=== PATIENT | male | born 1955 | race Caucasian/White ===

== ENCOUNTER → 2019-07-13 | Outpatient (CLI) | payer BC, OTHER ==
[~2019-07-13] VITALS: Ht 172.7 cm; Wt 70.3 kg
[~2019-07-13] MED LIST: BYSTOLIC 5 MG5 M1 PO; CRESTOR20 MG PO
--- NOTE | ~2019-07-13 | HC ---
[facility] [place] [address] CONSULTATION Name: WIN HEAD Room #: REG [facility]#: [id number] Admission: 07/13/19 Attend Phys: Krishna Rivera MD, Discharge: Date of : 55 Report #: [id number] THIS REPORT FOR: //name// CC: Krishna Wei DATE OF SERVICE: 07/13/2019 HISTORY OF PRESENT ILLNESS: We were asked by Dr. Rivera to see the patient. The patient is a 63-year-old with coronary artery disease, who just had cardiac catheterization that showed severe 3-vessel coronary artery disease. Left ventricular function was satisfactory. The patient presents with a history of a syncopal episode and event monitor was placed and the patient had a stress test that showed evidence of ischemia by EKG. MEDICATIONS: The patient denies taking medicine at home. ALLERGIES: None known. SOCIAL HISTORY: The patient is . He is an avid runner and is training for [employer]. REVIEW OF SYSTEMS: GENERAL: The patient denies symptoms. No fevers, weight change. EYES: No visual change. HEENT: No headache, no nasal discharge. No sinus problems. RESPIRATORY: Denies shortness of breath. CARDIAC: As mentioned, syncopal episode. Denies palpitations. Denies chest pain. GASTROINTESTINAL: No nausea, vomiting or blood. GENITOURINARY: No urgency, frequency, or blood. SKIN: No rash or infection. MUSCULOSKELETAL: Denies bone or joint pain. ENDOCRINE: No hot or cold intolerance. No goiter, no tremor. HEMATOLOGIC: No bruisability or bleeding. PHYSICAL EXAMINATION: VITAL SIGNS: Temperature 36.6, pulse rate 50, respiratory rate 11, blood pressure 133/75, O2 sat 97 on room air. HEENT: Normocephalic. Pupils are round, equal. No icterus, no arcus. NECK: No mass, no bruit. CHEST: Clear to auscultation. HEART: Rhythm regular, no murmurs. ABDOMEN: Soft. [facility] [address] [place] [address] CONSULTATION Name: WIN HEAD Room #: REG [facility]#: [id number] Admission: 07/13/19 Attend Phys: Krishna Rivera MD, Discharge: Date of : 55 Report #: [id number] EXTREMITIES: No obvious clubbing, cyanosis or edema. Strong distal pulses. No obvious saphenous vein problems. NEUROLOGIC: No motor or sensory dysfunction. MUSCULOSKELETAL: No bone or joint asymmetry or deformity. SKIN: No rash or infection. PSYCHIATRIC: Shows insight into problem and is a pleasant fellow. IMPRESSION: The patient has severe 3-vessel coronary artery disease with satisfactory ventricular function. I have recommended that the patient had coronary artery bypass surgery. Risks and details of this were discussed this includes but is not limited to bleeding, infection, anesthesia risks, heart and lung problems, stroke and . Options and alternatives were reviewed. The patient understands all of this and wishes to proceed. Thank you for the consult. By: 1456 0025 Rolando De Los Santos MD /nt
[2019-07-13 07:17] VITALS: BP 133/75
[2019-07-13 07:20] LABS: HEMATOCRIT 43.4 % (42.0-52.0); HEMOGLOBIN 14.5 gm/dL (14.0-18.0); MCH 31.8 pg (26.0-34.0); MCHC 33.4 g/dL (28.0-37.0); RBC 4.57 mil/uL (4.50-6.00); RDW 13.2 % (10.5-14.5); WBC 4.6 thou/uL (4.0-11.0)
[2019-07-13 07:26] LABS: CALCIUM 9.3 mg/dL (8.5-10.1); CREATININE 0.9 mg/dL (0.7-1.3)
--- NOTE | 2019-07-13 09:39 | CATHLAB ---
[facility] [address] [place] [address] INVASIVE PROCEDURE REPORT Name: WIN HEAD Room #: REG Martin#: [id number] Admission: 07/13/19 Attend Phys: Krishna Rivera, Discharge: Date of : 55 Date of Service: 07/13/19 0938 Report #: [id number] THIS REPORT FOR: //name// APPROVED REPORT Study performed: 07/13/2019 07:29:53 Patient Details Patient Status: Out-Patient Room #: The patient is a 63 year-old male Event Personnel Krishna Rivera Operating Room Specialist, Wally Anders RN RN, Lizett Bhatti, Bin Funk Scrub Procedures Performed Left Heart Cath w/or w/o Coronaries [id number] [facility] Indication Chest pain Procedure Narrative The Right Groin^ was infiltrated with 1% Lidocaine subcutaneous anesthesia. A PINNACLE 6FR Sheath #[id number] sheath was inserted into the RFA^. Coronary angiography was performed using coronary diagnostic catheters. The right coronary system was accessed and visualized with a JR4 catheter. The left coronary system was accessed and visualized with a JL4 catheter. The left ventricle was accessed and visualized with a PIGTAIL catheter. Left ventricular/Aortic Valve gradient assessed via catheter pullback. Left ventriculogram was performed in 30 degree projection. Closure device was deployed with a 6 Fr MYNX CONTROL 6F/7F #[id number]. The patient tolerated the procedure well and there were no complications associated with the procedure. There was no hematoma. Intraoperative Conscious Sedation Sedation start time: 7.46 Case end Time: 8.22 Fentanyl 50 mcg Versed 1 mg Fluoro Time: 1.42 minutes Dose: DAP 3620.00 cGycm2 411 mGy Contrast Type and Amount: Visipaque 135 ml Coronary Angiography [facility] [place] [address] INVASIVE PROCEDURE REPORT Name: WIN HEAD Room #: [facility]#: [id number] Admission: 07/13/19 Attend Phys: Krishna Rivera, Discharge: Date of : 55 Date of Service: 07/13/19 0938 Report #: [id number] The patient's coronary anatomy is right dominant. Diagnostic Cath Left Main Mild 10-20% distal left main plaquing. LAD Fairly heavy calcific changes of the proximal and mid portions of the LAD. Variable 70-85% proximal, long LAD stenosis Circumflex 90% mid circumflex stenosis just after a large first marginal branch OM1 Mild proximal OM1 plaquing. Severe complex disease in the mid circumflex prior to the first marginal branch OM2 Distally arising, angiographically normal second marginal branch Right Coronary 50-60% proximal right coronary stenosis. Tubular 65% distal right coronary stenosis R PDA Mild plaquing throughout the posterior descending Ramus Large ramus branch with mild 10-20% proximal plaquing Left Ventriculography The left ventricle is normal in size with normal contractility. The left ventricular ejection fraction is estimated to be 60-65%. Left ventricular wall motion abnormalities are not present. There is no mitral insufficiency. Hemodynamics The aortic pressure is 159/60 mmHg with a mean of 106 mmHg. The left ventricular pressure is 165/7 mmHg with a mean of mmHg. The left ventricular end diastolic pressure is 26 mmHg. There was no gradient across the aortic valve upon pullback. Pullback from the left ventricle to the aorta revealed no gradient across the aortic valve. Conclusion 1. Normal global and regional left ventricular systolic function 2. Mild distal left main plaquing (10-20%) 3. Severe multivessel coronary disease Recommendations CABG <ELECTRONICALLY SIGNED> By: Krishna Rivera MD, FACC 07/13/19937 7 7 Krishna Rivera MD, FACC /INF
--- NOTE | 2019-07-13 14:47 | EKG ---
[place] [address] [facility] [place] [address] ELECTROCARDIOGRAM REPORT Name: WIN HEAD [id number] Admission: 07/13/19 Attend Phys: Krishna Rivera MD, Discharge: Date of : 55 Report #: [id number] THIS REPORT FOR: //name// [facility] Test Date: 2019-07-13 Test Time: 07:00:14 Pat Name: WIN HEAD Department: Room: Gender: Litigation Manager: [facility] : 1955 Requested By: Krishna Rivera Order Number: [id number] MD: Dariusz Diaz Measurements Intervals [place] Rate: 48 P: 42 SC: 156 QRS: 31 QRSD: 91 T: 21 QT: 551 QTc: 493 Interpretive Statements Sinus bradycardia Probable left atrial enlargement Nonspecific T-wave abnormality Borderline prolonged QT interval No previous ECG available for comparison Electronically Signed On 07-13-2019 14:46:49 CDT by Dariusz Diaz [email or web address] <ELECTRONICALLY SIGNED> By: Dariusz Diaz MD 07/13/19 1446 0700 0700 Dariusz Diaz MD /CL
== END | disposition home or self-care (01) ==
LOC: CATH 06:39
PROVIDERS: Internal Medicine
DX: I25.10 Atherosclerotic heart disease of native coronary artery without angina pectoris (principal); E78.5 Hyperlipidemia, unspecified; Z79.899 Other long term (current) drug therapy; Z98.890 Other specified postprocedural states

== ENCOUNTER → 2019-07-17 | Outpatient (CLI) | payer BC, OTHER ==
--- NOTE | ~2019-07-17 | HC ---
[facility] [place] [address] CONSULTATION Name: WIN HEAD Room #: [facility] [id number] Admission: 07/17/19 ������������������ Attend Phys: Rolando De Los Santos MD Discharge: ������������������ Date of : 55 Report #: [id number] THIS REPORT FOR: //name// CC: Rolando Wei REASON FOR CONSULTATION: Preoperative evaluation. HISTORY OF PRESENT ILLNESS: The patient is a 63-year-old gentleman with dyslipidemia, mild hypertension and recurrent recent syncope. His recent evaluation has been extensive ultimately leading to the identification of severe multivessel coronary artery disease, for which bypass surgery is to be performed. The patient was driving to [place] for high school reunion when he had recurrent unwitnessed episodes of loss of consciousness, each lasting in upwards of 30 seconds. Following one episode, he ended [place] [address], thankfully without injury. He checked himself into a local hotel. While resting in hotel, he had episodes where he felt his heart raced, although this was not associated with other symptoms. He was evaluated at [facility] in [place], [place]. Electrolytes were normal. EKG demonstrated sinus rhythm with prolonged QT interval (QTC of 536 milliseconds). 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 He is training for the [employer] this fall. An outpatient stress study was notable for resting normal left ventricular systolic function, excellent exercise capacity, although striking ischemic electrocardiographic changes occurring in the recovery phase. Coronary angiography was undertaken on 07/13/2019, which this demonstrated normal left ventricular systolic function and severe multivessel coronary artery disease. Arrangements are being made for genetic screening for QT prolongation syndrome. He does have prior EKGs dating back many years with elevated QT duration. There have been no heart failure symptoms including orthopnea, paroxysmal nocturnal dyspnea or lower extremity edema. No prior history of syncope. His brother has had "fainting spells" which have been attributed to orthostatic hypotension. Prior to this recent series of events, he had been on no medications. ALLERGIES: No known drug allergies. PAST MEDICAL HISTORY: Medical records have been reviewed and include history of dyslipidemia, mild hypertension, back surgery. SOCIAL HISTORY: He has never been a smoker. . [facility] [address] [place] [address] CONSULTATION Name: WIN HEAD Room #: REG [facility] Martin#: [id number] Admission: 07/17/19 ������������������ Attend Phys: Rolando De Los Santos MD Discharge: ������������������ Date of : 55 Report #: [id number] FAMILY HISTORY: Unremarkable for premature coronary artery disease. REVIEW OF SYSTEMS: All systems negative except as that noted above. PHYSICAL EXAMINATION: GENERAL: A pleasant gentleman in no distress. VITAL SIGNS: Blood pressure is 146/80, heart rate of 45 and regular, 5 feet 8 inches tall, 155 pounds. HEENT: There are neither xanthelasma, subcutaneous xanthomata, oral mucosal or digital cyanosis or kyphoscoliosis present. CHEST: Clear to auscultation and percussion. CARDIAC: Regular rate and rhythm with normal S1, S2. No murmurs, gallops or rubs. ABDOMEN: Soft and nontender. EXTREMITIES: Without cyanosis, clubbing or edema. Radial pulses are 2+. NEUROLOGIC: He is alert with a nonfocal exam. LABORATORY DATA: Sodium 141, potassium 3.8, magnesium 2.1. EKG, sinus bradycardia with prolonged QT interval at 528 milliseconds, mildly elevated hemoglobin A1c. IMPRESSION: 1. Severe multivessel coronary artery disease. 2. Recurrent syncope; suspicious for hereditary prolonged QT syndrome. 3. Dyslipidemia. 4. Mild hypertension. 5. Elevated blood sugar; prediabetes. RECOMMENDATIONS: 1. Anticipate coronary artery bypass grafting for multivessel coronary artery disease. 2. Continued use of beta blockade and statin therapy. 3. Given his longstanding prolonged QT, outpatient genetic testing is being arranged. 4. Usual perioperative care. ��������������������������������������������� ���������������������������������������� By: ��������������������������������������������� 1650 0200 Krishna Rivera MD, FACC /nt
--- NOTE | 2019-07-17 09:16 | 2DMMODE ---
[facility] [place] [address] 2 D/M-MODE ECHOCARDIOGRAM Name: WIN HEAD Anette Room #: REG [facility] [id number] ������������� Admission: 07/17/19 ������������� Attend Phys: Rolando De Los Santos MD Discharge: ��� ������������� ��� Date of : 55 Date of Service: 07/17/19 0915 �� Report #: [id number] �������� ��������������������������������������������[id number] THIS REPORT FOR: //name// APPROVED REPORT Study performed: 07/17/2019 08:06:33 EXAM: Comprehensive 2D, Doppler, and color-flow Echocardiogram Patient Location: Out-Patient Status: routine BSA: 1.83 HR: 49 bpm BP: 120/80 mmHg Rhythm: NSR Other Information Study Quality: Good Indications Pre Op CABG. 2D Dimensions RVDd: 29.48 mm IVSd: 12.49 (7-11mm) LVOT Diam: 18.67 (18-24mm) LVDd: 41.61 mm PWd: 12.52 (7-11mm) Ascending Ao: 30.29 (22-36mm) LVDs: 24.50 (25-40mm) Aortic Root: 30.66 mm Volumes Left Atrial Volume (Systole) Single Plane 4CH: 57.99 mL Single Plane 2CH: 51.87 mL LA ESV Index: 32.00 mL/m2 Aortic Valve AoV Peak Ron.: 1.83 m/s AO Peak Gr.: 14.16 mmHg LVOT Max P.98 mmHg LVOT Max V: 1.50 m/s JERRICA Vmax: 2.23 cm2 Mitral Valve E/A Ratio: 1.7 MV Decel. Time: 237.88 ms MV E Max Ron.: 0.83 m/s [facility] [place] [place] [address] 2 D/M-MODE ECHOCARDIOGRAM Name: WIN HEAD Anette Room #: [facility]#: [id number] ������������� Admission: 07/17/19 ������������� Attend Phys: Rolando De Los Santos MD Discharge: ��� ������������� ��� Date of : 55 Date of Service: 07/17/19 0915 �� Report #: [id number] �������� ��������������������������������������������[id number] MV A Ron.: 0.50 m/s MV PHT: 68.98 ms IVRT: 96.89 ms Pulmonary Valve PV Peak Ron.: 1.32 m/s PV Peak Gr.: 7.02 mmHg Pulmonary Vein P Vein S: 0.52 m/s P Vein A: 0.28 m/s P Vein D: 0.41 m/s P Vein A Dur.: 90.0 msec P Vein S/D Ratio: 1.27 Tricuspid Valve TR Peak Ron.: 2.15 m/s RAP Estimate: 5.00 mmHg TR Peak Gr.: 18.47 mmHg PA Pressure: 24.00 mmHg Left Ventricle The left ventricle is normal size. There is normal LV segmental wall motion. Mild concentric left ventricular hypertrophy. Left ventricular systolic function is normal. LVEF is 60-65%. Right Ventricle The right ventricle is normal size. The right ventricular systolic function is normal. Atria The left atrium size is normal. The right atrium size is normal. Aortic Valve The aortic valve is normal in structure. No aortic regurgitation is present. There is no aortic valvular stenosis. Mitral Valve The mitral valve is normal in structure. Trace mitral regurgitation. Tricuspid Valve The tricuspid valve is normal in structure. Trace to mild tricuspid regurgitation. Estimated PAP is 25mmHg. Pulmonic Valve The pulmonary valve is normal in structure. Trace pulmonic regurgitation. [facility] [address] [place] [address] 2 D/M-MODE ECHOCARDIOGRAM Name: WIN HEAD Room #: REG [facility]#: [id number] ������������� Admission: 07/17/19 ������������� Attend Phys: Rolando De Los Santos MD Discharge: ��� ������������� ��� Date of : 55 Date of Service: 07/17/19 0915 �� Report #: [id number] �������� ��������������������������������������������[id number] Great Vessels The aortic root is normal in size. The ascending aorta is normal in size. IVC is normal in size and collapses >50% with inspiration. Pericardium There is no pericardial effusion. <Conclusion> The left ventricle is normal size. Mild concentric left ventricular hypertrophy. LVEF is 60-65%. The right ventricle is normal size. The left atrium size is normal. The aortic valve is normal in structure. Trace mitral regurgitation. Trace to mild tricuspid regurgitation. Estimated PAP is 25mmHg. The aortic root is normal in size. There is no pericardial effusion. ��������������������������������������������� <ELECTRONICALLY SIGNED> ���������������������������������������� By: Mahesh Lyle MD, FACC ��������������������������������������������� 07/17/19914 4 4 Mahesh Lyle MD, FACC /INF
== END ==
LOC: CV 07:50
DX: Z01.818 Encounter for other preprocedural examination (principal); I25.10 Atherosclerotic heart disease of native coronary artery without angina pectoris; I36.1 Nonrheumatic tricuspid (valve) insufficiency; I10 Essential (primary) hypertension; E78.5 Hyperlipidemia, unspecified

== ENCOUNTER 2019-07-19 05:51 | Inpatient (IN) | payer BC ==
[2019-07-17 10:24] LABS: ABSOLUTE NEUTROPHILS 4.9 thou/uL (1.4-8.2); BASOPHILS 0.6 % (0.0-2.0); EOSINOPHILS 4.4 % (0.0-3.0); HEMATOCRIT 44.2 % (42.0-52.0); HEMOGLOBIN 14.7 gm/dL (14.0-18.0); LYMPHOCYTES 18.4 % (24.0-44.0); MCH 31.8 pg (26.0-34.0); MCHC 33.3 g/dL (28.0-37.0); MCV 95.6 fL (80.0-100.0); MONOCYTES 7.1 % (1.0-8.0); PLATELET COUNT 144 thou/uL (150-400); POLYS 69.5 % (36.0-66.0); RBC 4.62 mil/uL (4.50-6.00); RDW 13.3 % (10.5-14.5)
[2019-07-17 10:37] LABS: ALBUMIN 3.8 g/dL (3.4-5.0); CALCIUM 9.2 mg/dL (8.5-10.1); CREATININE 0.8 mg/dL (0.7-1.3); POTASSIUM 4.5 mmol/L (3.5-5.1); TOTAL BILIRUBIN 0.4 mg/dL (<0.1-1.0); TOTAL PROTEIN 6.4 g/dL (6.4-8.2)
[2019-07-17 10:38] LABS: URINE BILIRUBIN NEGATIVE (Negative); URINE BLOOD NEGATIVE (Negative); URINE CLARITY CLEAR; URINE COLOR YELLOW; URINE GLUCOSE-RANDOM* NEGATIVE (Negative); URINE KETONES NEGATIVE (Negative); URINE LEUKOCYTES-REFLEX NEGATIVE (Negative); URINE NITRITE-REFLEX NEGATIVE (Negative); URINE PROTEIN (DIPSTICK) NEGATIVE (Negative); URINE SPECIFIC GRAVITY <= 1.005 (1.005-1.035); URINE UROBILINOGEN 0.2 E.U./dl (0.2-1.0)
[2019-07-17 10:45] LABS: APTT 26.1 Seconds (24.5-32.8); PROTIME 10.1 Seconds (9.3-11.4)
[2019-07-18 02:10] LABS: GLYCOHEMOGLOBIN (HGB A1C) 5.9 % (4.8-5.6)
[~2019-07-19] VITALS: Ht 172.7 cm; Wt 75.3 kg
[2019-07-19] VITALS (25 sets, daily range): BP systolic 91–125; BP diastolic 45–86
[2019-07-19 12:19] LABS: MCV 94.3 fL (80.0-100.0); RBC 3.13 mil/uL (4.50-6.00); RDW 12.9 % (10.5-14.5)
[2019-07-19 12:20] LABS: HEMATOCRIT 29.5 % (42.0-52.0)
[2019-07-19 12:46] LABS: INR 1.4
[2019-07-19 12:49] LABS: APTT 29.1 Seconds (24.5-32.8); FIBRINOGEN 173.9 mg/dL (210-360); PROTIME 14.8 Seconds (9.3-11.4)
[2019-07-19 13:20] LABS: POC BE 1 mmol/L (-2.0 to +3.0); POC CA IONIZED 4.5 mg/dL (4.5-5.3); POC GLUCOSE 115 mg/dL (70-99); POC HCO3 27.1 mmol/L (22.0-26.0); POC HEMOGLOBIN 10.9 g/dL (14.0-18.0); POC POTASSIUM 5.6 mmol/L (3.5-5.1); POC SODIUM 137 mmol/L (136-145); POC pCO2 51.5 mmHg (35.0-45.0); POC pH 7.329 (7.360-7.450)
[2019-07-19 13:20] LABS: POC BE 4 mmol/L (-2.0 to +3.0); POC CA IONIZED 4.4 mg/dL (4.5-5.3); POC GLUCOSE 159 mg/dL (70-99); POC HEMOGLOBIN 9.9 g/dL (14.0-18.0); POC POTASSIUM 5.8 mmol/L (3.5-5.1); POC SODIUM 137 mmol/L (136-145); POC pCO2 46.2 mmHg (35.0-45.0); POC pH 7.406 (7.360-7.450)
[2019-07-19 13:20] LABS: POC BE 4 mmol/L (-2.0 to +3.0); POC CA IONIZED 4.5 mg/dL (4.5-5.3); POC GLUCOSE 128 mg/dL (70-99); POC HCO3 28.9 mmol/L (22.0-26.0); POC HEMOGLOBIN 10.5 g/dL (14.0-18.0); POC POTASSIUM 5.9 mmol/L (3.5-5.1); POC SODIUM 137 mmol/L (136-145); POC pCO2 47.5 mmHg (35.0-45.0); POC pH 7.393 (7.360-7.450)
[2019-07-19 13:20] LABS: POC BE 7 mmol/L (-2.0 to +3.0); POC CA IONIZED 4.7 mg/dL (4.5-5.3); POC GLUCOSE 107 mg/dL (70-99); POC HCO3 30.1 mmol/L (22.0-26.0); POC HEMOGLOBIN 12.2 g/dL (14.0-18.0); POC POTASSIUM 4.4 mmol/L (3.5-5.1); POC SODIUM 139 mmol/L (136-145); POC pCO2 39.3 mmHg (35.0-45.0); POC pH 7.493 (7.360-7.450)
[2019-07-19 13:20] LABS: POC BE 3 mmol/L (-2.0 to +3.0); POC CA IONIZED 4.2 mg/dL (4.5-5.3); POC GLUCOSE 145 mg/dL (70-99); POC HCO3 26.7 mmol/L (22.0-26.0); POC HEMOGLOBIN 9.2 g/dL (14.0-18.0); POC POTASSIUM 5.3 mmol/L (3.5-5.1); POC SODIUM 135 mmol/L (136-145); POC pCO2 38.1 mmHg (35.0-45.0); POC pH 7.454 (7.360-7.450)
[2019-07-19 13:21] LABS: POC BE 2 mmol/L (-2.0 to +3.0); POC CA IONIZED 5.3 mg/dL (4.5-5.3); POC GLUCOSE 127 mg/dL (70-99); POC HCO3 25.7 mmol/L (22.0-26.0); POC HEMOGLOBIN 9.2 g/dL (14.0-18.0); POC POTASSIUM 4.5 mmol/L (3.5-5.1); POC SODIUM 137 mmol/L (136-145); POC pCO2 34.8 mmHg (35.0-45.0); POC pH 7.476 (7.360-7.450)
[2019-07-19 13:21] LABS: POC BE 2 mmol/L (-2.0 to +3.0); POC CA IONIZED 4.9 mg/dL (4.5-5.3); POC GLUCOSE 120 mg/dL (70-99); POC HCO3 25.6 mmol/L (22.0-26.0); POC HEMOGLOBIN 10.9 g/dL (14.0-18.0); POC POTASSIUM 3.9 mmol/L (3.5-5.1); POC SODIUM 140 mmol/L (136-145)
[2019-07-19 13:44] LABS: HEMATOCRIT 34.6 % (42.0-52.0); HEMOGLOBIN 11.7 gm/dL (14.0-18.0); MCHC 33.7 g/dL (28.0-37.0); RBC 3.64 mil/uL (4.50-6.00); RDW 13.3 % (10.5-14.5); WBC 15.2 thou/uL (4.0-11.0)
--- NOTE | 2019-07-19 13:50 | NUR ---
RD consult received for diet education. CAD and s/p CABG 07/19. Will address nutrition education needs once pt transferred out ICU and at more appropriate time.
[2019-07-19 13:51] LABS: BE(vivo) -2.6 mmol/L (-2 to +3); HCO3 23.4 mmol/L (22.0-26.0); PO2 212.3 mmHg (80.0-100.0); pH 7.333 (7.360-7.450); sO2 99.4 % (92.0-98.0)
--- NOTE | 2019-07-19 14:00 | NUR ---
PT ARRIVED ON THE UNIT @ APPROX 1322 07/19/19 WITH THE ASSIST OF NURSING STAFF , ANESTHESIOLOGIST, AND SURGEON. PROPOFOL RUNNING @ 40, CARDENE @ 5. NO COMPLICATIONS DURING TRANPORT TO THE UNIT. STAT ABG'S CALLED TO DR GONZALEZ, VENT SETTINGS CHANGED. WILL CONT TO MONITOR.
[2019-07-19 14:03] LABS: CALCIUM 8.7 mg/dL (8.5-10.1); CREATININE 0.9 mg/dL (0.7-1.3); POTASSIUM 4.1 mmol/L (3.5-5.1)
[2019-07-19 14:06] LABS: APTT 28.9 Seconds (24.5-32.8); INR 1.1
[2019-07-19 15:49] LABS: BE(vivo) -6.3 mmol/L (-2 to +3); HCO3 19.4 mmol/L (22.0-26.0); PCO2 39.6 mmHg (35.0-45.0); PO2 98.8 mmHg (80.0-100.0); pH 7.309 (7.360-7.450)
[2019-07-19 16:08] LABS: MAGNESIUM 2.5 mg/dL (1.8-2.4)
--- NOTE | 2019-07-19 17:10 | EKG ---
[address] [place] [address] ELECTROCARDIOGRAM REPORT Name: WIN HEAD Room #: 239-P ADM IN M.R.#: [id number] ������������������ Admission: 07/19/19 ������������������ Attend Phys: Rolando De Los Santos MD Discharge: ������������������ Date of : 55 Report #: [id number] ����������������������������������������������������������������� [id number] THIS REPORT FOR: //name// [facility] Test Date: 2019-07-19 Test Time: 15:49:52 Pat Name: WIN HEAD Department: Room: 239 Gender: M Sensitometrist: Froylan GRIMES : 1955 Requested By: Joe Aguirre Order Number: [id number] MD: Krishna Rivera Measurements Intervals [place] Rate: 72 P: 59 [place]: 144 QRS: 6 QRSD: 93 T: 17 QT: 499 QTc: 547 Interpretive Statements Sinus rhythm Borderline low voltage, extremity leads Prolonged QT interval Compared to ECG 07/13/2019 07:00:14 Sinus bradycardia no longer present Electronically Signed On 07-19-2019 17:09:55 CDT by Krishna Rivera [email or web address] ��������������������������������������������� <ELECTRONICALLY SIGNED> ���������������������������������������� By: Krishna Rivera MD, [facility] ��������������������������������������������� 07/19/19 1709 1549 1549 Krishna Rivera MD, [facility] /EPI
--- NOTE | 2019-07-19 18:36 | NUR ---
ASSUMED CARE @ 1322, PT ASSESSMENTS AND VSS COMPLETE PER ICU PROTOCOL. PT ALERT AND ORIENTED X 4, NEURO INTACT, PT GIVEN FENTANYL FOR PAIN DURING THIS SHIFT. PT EXTUBATED AROUND 1600 07/19/19, PT ON 2L, SATS IN THE HIGH 90'S, PLEURAL TUBE X 1 TO -20CM. NO SIGNS OF SOA. PT IN S R-ST, MEDIASTINAL CHEST TUBE X2 TO -20CM IN PLACE PT TOLERATING SWAB AND SMALL SIPS AT THIS TIME. HORNE IN PLACE, GOP NOTED. PLAN OF CARE- CONT TO MONITOR.
[2019-07-20] VITALS (8 sets, daily range): BP systolic 108–131; BP diastolic 55–66
[2019-07-20 05:24] LABS: HEMOGLOBIN 11.7 gm/dL (14.0-18.0); MCH 31.6 pg (26.0-34.0); MCHC 32.6 g/dL (28.0-37.0); MCV 96.9 fL (80.0-100.0); RBC 3.71 mil/uL (4.50-6.00); RDW 13.5 % (10.5-14.5); WBC 13.5 thou/uL (4.0-11.0)
[2019-07-20 06:08] LABS: CALCIUM 8.8 mg/dL (8.5-10.1); CREATININE 1.1 mg/dL (0.7-1.3); MAGNESIUM 2.3 mg/dL (1.8-2.4); POTASSIUM 4.4 mmol/L (3.5-5.1)
--- NOTE | 2019-07-20 07:11 | NUR ---
Pt is up in chair this am. Well debora activity.
--- NOTE | 2019-07-20 08:08 | EKG ---
[address] [address] ELECTROCARDIOGRAM REPORT Name: WIN HEAD Room #: 239-P ADM IN M.R.#: [id number] ������������������ Admission: 07/19/19 ������������������ Attend Phys: Rolando De Los Santos MD Discharge: ������������������ Date of : 55 Report #: [id number] ����������������������������������������������������������������� [id number] THIS REPORT FOR: //name// [facility] Test Date: 2019-07-20 Test Time: 07:13:21 Pat Name: WIN HEAD Department: Room: 239 P Gender: M Healthcare Risk Control Consultant: SONYA : 1955 Requested By: Joe Aguirre Order Number: [id number] MD: Russell Patel Measurements Intervals [place] Rate: 60 P: 49 NE: 139 QRS: -9 QRSD: 105 T: 47 QT: 555 QTc: 555 Interpretive Statements Sinus rhythm Abnormal R-wave progression, early transition Borderline ST elevation, lateral leads Prolonged QT interval Compared to ECG 07/19/2019 15:49:52 ST (T wave) deviation now present Electronically Signed On 07-20-2019 8:08:22 CDT by Russell Patel [email or web address] ��������������������������������������������� <ELECTRONICALLY SIGNED> ���������������������������������������� By: Russell Patel MD ��������������������������������������������� 07/20/1908 2 2 Russell Patel MD /EPI
--- NOTE | 2019-07-20 10:14 | NUR ---
CM ASSESSMENT: CASE OPENED FOR DC PLANNING. CLINICAL INFO REVIEWED. POD # CABG X5 AND UP IN CHAIR THIS AM. PT LIVES IN HOUSE WITH SPOUSE, WORKS FT AND WAS ACTIVE PRIOR TO ADMIT. NO DME OR PREVIOUS HOME HEALTH. PCP MARGO HANDY. THERAPY EVALS TODAY. ANTICIPATE WILL HAVE NO CASE MANAGEMENT NEEDS AT DISCHARGE. CM AVAILABLE TO ASSIST WITH DC PLANNING NEEDED.
--- NOTE | 2019-07-20 16:48 | NUR ---
ASSUMED CARE @ 0700 07/20/19, PT ASSESSMENTS AND VSS COMPLETE PER ICU PROTOCOL. PT ALERT AND ORIENTED X 4, PT ABLE TO FOLLOW COMMANDS TO BEST ABILITIES, PT GIVEN HYDROCODONE FOR PAIN DURING SHIFT. PT INITIALLY ON 2L OF 02, BUT WHEN GOTTEN UP THE SECOND TIME BY PT, PT DID DESATS, O2 INCREASED TO 4L, O2 IN THE 90'S AT THIS TIME. PT STILL ON CARDENE, TRYING TO TITRATE OFF, NORVASC GIVEN FOR BP SUPPORT. SWANS ALLAN AND MEDIASTINAL CHEST TUBES DC'D TODAY, NO COMPLICATIONS NOTED. PT ABLE TO TOLERATE DIET, HORNE STILL IN PLACE, GOP NOTED. FALL PRECAUTIONS IN PLACE. FAMILY AT BEDSIDE FO SUPPORT. PLAN OF CARE- CONT TO MONITOR.
[2019-07-20 19:49] LABS: BE(vivo) -1.5 mmol/L (-2 to +3); HCO3 22.7 mmol/L (22.0-26.0); PCO2 36.2 mmHg (35.0-45.0); PO2 51.4 mmHg (80.0-100.0); pH 7.415 (7.360-7.450); sO2 87.2 % (92.0-98.0)
--- NOTE | 2019-07-20 20:00 | NUR ---
SUDDENLY O2 SAT 84 % ON 3LITERS PT DENIES SOA. INCREASED TO 6 LITERS ART BP 160'S CARDENE GTT INCREASED TO 5 MG
--- NOTE | 2019-07-20 20:15 | NUR ---
ABG CXRAY AND EKG DONE. PT STILL DENIES SOA. HIGH FLOW NC ADDED TO 15 LITER UNABLE TO KEEP O2 SAT > 90 %. DR GONZALEZ NOTIFIED. LEFT ORDERS TO DC CARDENE GTT DUE TO POISSIBLE VQ MISMATCHED. WILL CONT TO MONITOR
--- NOTE | 2019-07-20 20:30 | NUR ---
DR GONZALEZ HERE. PT AWAKE AND ALERT. O2 SATS COMING UP. PT STILL CONT TO DENQUINTIN SOA. LUNBGS DIMINISHED AND CLEAR. WILL CONT TO MONITOR.
--- NOTE | 2019-07-20 20:56 | O ---
[facility] [place] [address] OPERATIVE REPORT Name: WIN HEAD Room #: 239-P [facility] IN M.R.#: [id number] Admission: 07/19/19 ������������������ Attend Phys: Rolando De Los Santos MD Discharge: ������������������ Date of : 55 Report #: [id number] THIS REPORT FOR: //name// CC: Rolando Wei DATE OF SERVICE: 07/20/2019 PREOPERATIVE DIAGNOSIS: Coronary artery disease. POSTOPERATIVE DIAGNOSIS: Coronary artery disease. OPERATION: Coronary artery bypass x 5 including left internal mammary artery to left anterior descending artery, saphenous vein to ramus, marginal 1, and marginal 2 and saphenous vein to posterior descending branch of right coronary and endoscopic harvest, left greater saphenous vein. SURGEON: Rolando De Los Santos MD AUTOMATIC BANDSAW TENDER: ISAÍAS Bill. ANESTHESIA: General. INDICATIONS: The patient is a 63-year-old with coronary artery disease. The patient presented with syncope [place] [address] Despite the fact that the patient performed at a high level, he had EKG changes in the cool down period of the stress test. Catheterization demonstrated 3-vessel coronary artery disease, but good ventricular function. The patient was referred for surgery by Dr. Rivera. FINDINGS AND TECHNIQUE: After general anesthesia was established, saphenous vein was harvested using an endoscopic approach and prepared for use as a conduit. Exposure was obtained through median sternotomy. Left internal mammary artery was harvested from chest wall. Pericardial well was made. Cannulation sutures were placed. Heparin was given. Aorta was cannulated. Right atrium was cannulated. Cardioplegia needle was positioned in the aortic root. Retrograde cardioplegic catheter was placed in coronary sinus. Cardiopulmonary bypass was established. The aorta was cross clamped. Antegrade and retrograde cardioplegia were given. Ice was poured into the pericardial wall. The heart was stopped. During electromechanical arrest, the distal anastomoses were performed and end-to-side anastomosis was made between vein and the posterior descending artery. This was a 1.6 mm vessel. It was a speckled with calcium throughout. [facility] [address] [place] [address] OPERATIVE REPORT Name: ADILENEWIN Anette Room #: 239-P [facility] IN .R.#: [id number] Admission: 07/19/19 ������������������ Attend Phys: Rolando De Los Santos MD Discharge: ������������������ Date of : 55 Report #: [id number] At the end of the anastomosis, cold cardioplegia was given. A separate segment of vein was sewn in end-to-side fashion to the large second marginal. This was a 1.7 mm vessel. Cold cardioplegia was given. This vessel as well was speckled with calcium. The same segment of vein was sewn in obji-br-mttf fashion to first marginal. Once again, this was a speckled with calcium that measured 1.7 mm. Cold cardioplegia was given. Same segment of vein was sewn in end-to-side fashion to the ramus intermedius. This was a 1.7 mm vessel speckled with calcium. Cold cardioplegia was given. Left internal mammary artery was sewn in end-to-side fashion to the left anterior descending artery. This was also diffusely speckled and measured approximately 1.7. The anastomosis was checked with the temperature technique. Cold cardioplegia was given. Two proximal anastomoses were performed and these were complete, warm retrograde cardioplegia was given followed by warm continuous blood to the coronary sinus. When this infusion was complete, the crossclamp was removed, de-airing maneuvers were performed. The anastomoses were inspected and found to be satisfactory. As the patient warmed, nice cardiac activity resumed, chest tubes and pacing wires were placed. A marker was placed around the proximal anastomoses. When the patient was warmed, he was weaned from cardiopulmonary bypass. Venous cannula was removed. Protamine was given, the aortic cannula was removed. Flows were measured in the bypass grafts. When hemostasis was satisfactory, chest was irrigated with antibiotic solution and closed in the usual fashion. The patient was taken to the Intensive Care Unit in good condition having tolerated the procedure well. All counts reported as correct. ��������������������������������������������� <ELECTRONICALLY SIGNED> ���������������������������������������� By: Rolando De Los Santos MD ��������������������������������������������� 07/20/19 2056 0824 Rolando De Los Santos MD /nt
[2019-07-21] VITALS (22 sets, daily range): BP systolic 114–142; BP diastolic 52–77
--- NOTE | 2019-07-21 05:30 | NUR ---
PT AWAKE AND ALERT. O2 SAT 95 % ON 2 L NC. 140 CC PLEURAL TUBE INCREASE AND 1000 CC UO THIS SHOFT. BATHED. UP TO CARDIAC CHAIR
--- NOTE | 2019-07-21 06:00 | NUR ---
CHEST AND LEFT LEG DRESSINGS DRY AND INTACT. HAD ANOTHER [address] INCREASE WHEN UP TO CHAIR. REMAINS IN SINUS RHYTHM. WILL CONT TO MONITOR.
[2019-07-21 06:07] LABS: HEMATOCRIT 30.7 % (42.0-52.0); HEMOGLOBIN 10.4 gm/dL (14.0-18.0); MCH 32.4 pg (26.0-34.0); MCHC 33.8 g/dL (28.0-37.0); MCV 95.8 fL (80.0-100.0); RBC 3.21 mil/uL (4.50-6.00); RDW 13.3 % (10.5-14.5); WBC 13.5 thou/uL (4.0-11.0)
[2019-07-21 06:18] LABS: CALCIUM 8.4 mg/dL (8.5-10.1); CREATININE 0.8 mg/dL (0.7-1.3); POTASSIUM 4.3 mmol/L (3.5-5.1)
--- NOTE | 2019-07-21 15:21 | NUR ---
REC PT FROM ICU, FEELING A LITTLE NAUSEAS AND HAS RIGHT WRIST SITE FROM PREVIOUS IV OLD BLOOD, PT IS A&0X4, ACCOMPANIED BY SPOUSE. LEFT LAT SITES FROM CHEST TUBE COVERED WELL MEDIASTINAL BANDAGE, MIKI DRESSING. SHOWED PT CALL LIGHT, OFFERED SNACKS. WILL REVIEW ORDERS. PT AND DELIVERY STAFF MENTIONED HIS TEMP HAS BEEN 99, WHICH HE STATES IS HIGH FOR HIM, X 2 DAYS. ENCOURAGED BOTH TO USE CALL LIGHT FOR ANY NEEDS. CARDIAC MONITORED.
--- NOTE | 2019-07-21 18:13 | NUR ---
PLACED CALL TO DR. GONZALEZ TO GIVE FYI ON PT'S TEMP NOW 100.1. NO REPORTS OF FEVER FROM KIESELGUHR REGENERATOR OPERATOR YET SPOUSE STATED THEY'D BEEN RUNNING 99. PT STATES THIS IS HIGHER THAN HIS NORM, THE 99. AWAITING ORDERS
[2019-07-22] VITALS: BP 142/80
[2019-07-22 05:00] VITALS: BP 144/77
[2019-07-22 07:20] VITALS: BP 140/79
--- NOTE | 2019-07-22 08:06 | NUR ---
ASSUME CARE 1900. PT/VITALS STABLE. DENIES ANY PAIN. MODERATE TOLERANCE TO ACTIVITY. UP TO BATHROOM WITH ASSISTANCE. ADEQUATE REST NOTED THROUGH THE NIGHT. EDUCATION ONE AND NEEDS TO BE REINFORCED ON WHY PT NEEDS TO TAKE HIS PAIN MEDICATION. POOR COUGH EFFORT AND IS USE, NOTED. ASSESSMETN CHARTED. PROGRESSING MODERTELY TOWARDS POC. PLAN IS POSSIBLE DISCHARGE WITHIN A FEW DAYS. WILL CONTINUE TO MONITOR AND FOLLOW WITH POC
[2019-07-22 08:31] LABS: HEMATOCRIT 32.4 % (42.0-52.0); HEMOGLOBIN 11.2 gm/dL (14.0-18.0); MCH 32.6 pg (26.0-34.0); MCHC 34.4 g/dL (28.0-37.0); MCV 94.7 fL (80.0-100.0); RBC 3.43 mil/uL (4.50-6.00); RDW 13.2 % (10.5-14.5); WBC 10.2 thou/uL (4.0-11.0)
[2019-07-22 08:41] LABS: CREATININE 0.9 mg/dL (0.7-1.3); POTASSIUM 3.9 mmol/L (3.5-5.1)
[2019-07-22] MEDS ORDERED: METOPROLOL SUCC25 M1 PO (12:45)
[2019-07-22] MEDS ORDERED: FERREX 150 PLU1 EAC1 PO (12:45)
[2019-07-22] MEDS ORDERED: LISINOPRIL5 MG PO (12:46)
[2019-07-22] MEDS ORDERED: HYDROCODON-ACE1 EAC7 PO (12:46)
[2019-07-22] MEDS ORDERED: ADULT LOW DOSE81 MG PO (12:46)
[2019-07-22 12:52] VITALS: BP 140/79
--- NOTE | 2019-07-22 13:34 | NUR ---
ASSUMED CARE AT SHIFT CHANGE, ALERT AND ORIENTED X4. SR AND VSS.PATIENT SHOWERED AND DRESSING CHANGED. DISCHARGE, AND MEDICATION INSTRUCTION GIVEN TO PATIENT AND SPOUSE. PATIENT DISCHARGED HOME.
--- NOTE | 2019-07-22 14:13 | EKG ---
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 : 1955 Requested By: Rolando De Los Santos Order Number: [id number] MD: Krishna Rivera Measurements Intervals [place] Rate: 57 P: TN: QRS: 7 QRSD: 124 T: 9 QT: 545 QTc: 531 Interpretive Statements Junctional rhythm Nonspecific intraventricular conduction delay ST elevation suggests postoperative pericarditis Prolonged QT interval Compared to ECG 07/20/2019 07:13:21 Junctional rhythm now present Electronically Signed On 07-22-2019 14:13:27 CDT by Krishna Rivera [email or web address] ��������������������������������������������� <ELECTRONICALLY SIGNED> ���������������������������������������� By: Krishna Rivera MD, [facility] ��������������������������������������������� 07/22/19 1413 2030 29 Krishna Rivera MD, [facility] /EPI
--- NOTE | 2019-07-22 14:16 | EKG ---
[place] [address] [facility] [place] [address] ELECTROCARDIOGRAM REPORT Name: WIN HEAD Room #: 207-P [facility] IN M.R.#: [id number] ������������������ Admission: 07/19/19 ������������������ Attend Phys: Rolando De Los Santos MD Discharge: 07/22/19 ������������������ Date of : 55 Report #: [id number] ����������������������������������������������������������������� [id number] THIS REPORT FOR: //name// [facility] Test Date: 2019-07-21 Test Time: 07:19:00 Pat Name: WIN HEAD Department: Room: 207 Gender: 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: jlambtommie : 1955 Requested By: Krishna Rivera Order Number: [id number] MD: Krishna Rivera Measurements Intervals [place] Rate: 57 P: 66 MT: 134 QRS: 20 QRSD: 102 T: 10 QT: 583 QTc: 568 Interpretive Statements Sinus bradycardia Abnormal R-wave progression, early transition Borderline ST elevation, anterolateral leads, consider postoperative pericarditis Prolonged QT interval Compared to ECG 07/20/2019 07:13:21 Sinus bradycardia has replaced junctional rhythm Electronically Signed On 07-22-2019 14:16:08 CDT by Krishna Rivera [email or web address] ��������������������������������������������� <ELECTRONICALLY SIGNED> ���������������������������������������� By: Krishna Rivera MD, [facility] ��������������������������������������������� 07/22/19 1416 8 8 Krishna Rivera MD, [facility] /EPI
--- NOTE | 2019-07-22 14:33 | EKG ---
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 HUNTER : 1955 Requested By: Krishna Rivera Order Number: [id number] MD: Krishna Rivera Measurements Intervals [place] Rate: 73 P: 55 HI: 134 QRS: 15 QRSD: 94 T: 17 QT: 506 QTc: 558 Interpretive Statements Sinus rhythm Low voltage, precordial leads Nonspecific ST and T wave abnormality Prolonged QT interval Compared to ECG 07/20/2019 07:13:21 ST segment elevation is less prominent Electronically Signed On 07-22-2019 14:33:03 CDT by Krishna Rivera [email or web address] ��������������������������������������������� <ELECTRONICALLY SIGNED> ���������������������������������������� By: Krishna Rivera MD, [facility] ��������������������������������������������� 07/22/19 1433 Krishna Rivera MD, [facility] /EPI
--- NOTE | 2019-07-22 14:34 | EKG ---
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: Florencio HUNTER : 1955 Requested By: Rolando De Los Santos Order Number: [id number] MD: Krishna Rivera Measurements Intervals [place] Rate: 78 P: 58 [place]: 130 QRS: 22 QRSD: 107 T: 20 QT: 493 QTc: 562 Interpretive Statements Sinus rhythm ST segment elevation, consider postoperative pericarditis Prolonged QT interval Compared to ECG 07/20/2019 07:13:21 No significant change was found Electronically Signed On 07-22-2019 14:33:42 CDT by Krishna Rivera [email or web address] ��������������������������������������������� <ELECTRONICALLY SIGNED> ���������������������������������������� By: Krishna Rivera MD, [facility] ��������������������������������������������� 07/22/19 1433 0849 0849 Krishna Rivera MD, [facility] /EPI
== END 2019-07-22 14:07 | disposition home or self-care (01) | DRG 236 ==
LOC: TBA 05:51 → PRE 09:16 → ICU 13:20 → PRE 14:20 → 2N 07-21 15:56
PROVIDERS: Physician Assistant; ADMIT Surgery Vascular Surgery
PROC: 021309W Bypass Coronary Artery, Four or More Arteries from Aorta with Autologous Venous Tissue, Open Approach (ICD-10-PCS; principal; 2019-07-20)
PROC: 5A1221Z Performance of Cardiac Output, Continuous (ICD-10-PCS; principal; 2019-07-20)
PROC: 06BQ4ZZ Excision of Left Saphenous Vein, Percutaneous Endoscopic Approach (ICD-10-PCS; principal; 2019-07-20)
PROC: 02100Z9 Bypass Coronary Artery, One Artery from Left Internal Mammary, Open Approach (ICD-10-PCS; principal; 2019-07-20)
DX: I25.10 Atherosclerotic heart disease of native coronary artery without angina pectoris (principal); E78.5 Hyperlipidemia, unspecified; I10 Essential (primary) hypertension; I45.81 Long QT syndrome; R73.03 Prediabetes; R00.1 Bradycardia, unspecified
CPT/HCPCS: 10078; 10081; 47000; 47001; 47002; 47297; 48888; 50010; 50249; 50382; 50409; 50456; 50498; 50668; 51301; 52131; 52259; 52314; 53327; 53358; 54118; 56455; 56524; 56525; 56526; 56527; 56528; 56531; 56534; 56668; 56760; 56898; 57167; 62110; 62950; 65003; 65047; 65090; 65135; 83006

== ENCOUNTER → 2019-08-22 | Outpatient (CLI) | payer BC, OTHER ==
[~2019-08-22] MED LIST changes: +ADULT LOW DOSE81 MG PO; +FERREX 150 PLU1 EAC1 PO; +HYDROCODON-ACE1 EAC7 PO; +LISINOPRIL5 MG PO; +METOPROLOL SUCC25 M1 PO
== END ==
LOC: RAD 11:43
DX: J90 Pleural effusion, not elsewhere classified (principal)

== ENCOUNTER → 2021-02-26 | Outpatient (CLI) | payer OTHER | LOC: SJCVC 13:07 | PROVIDERS: ATTEND Internal Medicine | DX: R94.31 Abnormal electrocardiogram [ECG] [EKG] (principal); R00.1 Bradycardia, unspecified; I25.119 Atherosclerotic heart disease of native coronary artery with unspecified angina pectoris; Z95.1 Presence of aortocoronary bypass graft; E78.5 Hyperlipidemia, unspecified; Z79.82 Long term (current) use of aspirin; Z79.899 Other long term (current) drug therapy ==